=== PATIENT | female | born 1950 | race Caucasian/White ===

== ENCOUNTER → 2017-01-24 | Outpatient (CLI) | payer MEDICARE ==
--- NOTE | 2017-01-24 11:24 | KCIC ---
PROCEDURE MRI of the lumbar spine without contrast 01/24/2017 HISTORY Low back pain which radiates down both hips for the last 6 weeks. TECHNIQUE Unenhanced T1 weighted, T2 weighted and inversion recovery sagittal and T1 weighted and T2 weighted axial images of the cervical spine were obtained. FINDINGS Minimal S-shaped curvature of the thoracolumbar spine is seen. Degenerative signal changes are seen involving all of the discs of the cervical spine. Degenerative signal changes within the marrow surrounding these discs. Loss of height of the L3-4, L4-5 and L5-S1 discs is noted. A 2.4 centimeter hemangioma is seen involving the L5 vertebral body. The conus medullaris is normal in morphology, position, and signal characteristics. At the L1-2 disc space there is a mild generalized disc bulge. Degenerative changes are seen involving the facet joints bilaterally. These findings do not result in significant central spinal canal or neural foraminal stenosis. At the L2-3 disc space there is a mild generalized disc bulge. Degenerative changes are seen involving the facet joints bilaterally. There is mild ligamentum flavum hypertrophy bilaterally. These findings when combined result in very mild central spinal canal stenosis. No neural foraminal stenosis is seen. At the L3-4 disc space there is a mild to moderate generalized disc bulge. Degenerative changes are seen involving the facet joints bilaterally. There is moderate ligamentum flavum hypertrophy bilaterally. These findings when combined result in mild central spinal canal stenosis. No neural foraminal stenosis is noted. At the L4-5 disc space there is a moderate generalized disc bulge. This is eccentric to the left. Degenerative changes are seen involving the facet joints bilaterally. There is moderate ligamentum flavum hypertrophy bilaterally. These findings when combined result in mild to moderate central spinal canal stenosis. Mild left greater than right neural foraminal stenosis is seen. At the L5-S1 disc space there is a mild generalized disc bulge. Degenerative changes are seen involving the facet joints bilaterally. These findings when combined do not result in significant central spinal canal or neural foraminal stenosis. IMPRESSION The changes of degenerative disc disease are seen throughout the lumbar spine. These findings result in very mild central spinal canal stenosis at L2-3, mild central spinal canal stenosis at L3-4 and mild to moderate central spinal canal stenosis at L4-5. Mild left greater than right neural foraminal stenosis is seen at L4-5. Electronically signed by: Stefan Short MD (January 24, 2017 11:23:45)
== END | disposition home or self-care (01) ==
LOC: KCIC MRI 10:04
PROVIDERS: ATTEND Nurse Practitioner Family
DX: M51.36 Other intervertebral disc degeneration, lumbar region (principal); M48.06 Spinal stenosis, lumbar region
CPT/HCPCS: 72148

== ENCOUNTER → 2017-03-28 | Outpatient (CLI) | payer MEDICARE ==
[~2017-03-28] MED LIST: INDA2.5T PO; IOHEXOL 240 MG/ML 50ML VIAL. PO ONE; IOHEXOL 300 MG/ML 100ML VIAL. IV ONE; LEVO25TA55 PO; LISI1TAB3 PO; SIMV20TA3 PO; TRAM50TA PO
--- NOTE | 2017-03-28 11:15 | KCIC ---
INDICATION: Epigastric pain COMPARISON: None. TECHNIQUE: Axial CT images were obtained through the abdomen and pelvis with intravenous contrast. One or more of the following individualized dose reduction techniques were utilized for this examination: 1. Automated exposure control; 2. Adjustment of the mA and/or kV according to patient size; 3. Use of iterative reconstruction technique. FINDINGS: Mild calcific atherosclerosis of abdominal aorta. Liver is mildly low attenuation. No intrahepatic bile duct dilation. There are couple of tiny low-attenuation liver lesions, too small to characterize but a commonly seen finding. The pancreas enhances. There is some questionable mild prominence of the wall of the gastric antrum. Spleen unremarkable. No hydronephrosis. Bladder partially distended. Postoperative changes at distal colon. No definite periappendiceal inflammation. No dilated loops of bowel suggest obstruction. Degenerative changes spine. This causes multilevel central canal and neural foraminal stenosis IMPRESSION: 1. No evidence of bowel obstruction or appendicitis. 2. Low attenuation of the liver. Nonspecific but frequently secondary to fatty infiltration. 3. There couple of tiny low-attenuation lesions within the liver. This is a very commonly seen finding and is too small to characterize on this exam. 4. Questionable mild prominence of the wall of the gastric antrum. Could be secondary to a region of contraction but would correlate with symptoms in the region to ensure that there is not a pathologic process such as gastritis or ulcer. Electronically signed by: Mitch Morales MD (03/28/2017 11:11 AM) [facility]
== END | disposition home or self-care (01) ==
LOC: KCIC CT 09:37
PROVIDERS: ATTEND Nurse Practitioner Family
DX: R10.13 Epigastric pain (principal); K76.0 Fatty (change of) liver, not elsewhere classified; I70.0 Atherosclerosis of aorta
CPT/HCPCS: 74177; 82565; Q9966; Q9967